=== PATIENT | male | born 1995 | race Caucasian/White ===

== ENCOUNTER 2019-04-27 16:21 | Emergency (ER) | payer BC, OTHER ==
[2019-04-27 16:56] VITALS: BP 150/74
--- NOTE | 2019-04-27 17:31 | UC ---
UC General HPI - HPI Summary HPI Summary: 23-year-old male comes in with a chief complaint worms in his stool. About a week ago he noticed some. His dodges recently had a warm infection and that they treated the dog with [id number] medications for. Patient reports seeing right spiral forearm like structures in his stool. He has abdominal discomfort but no pain no fevers. He had diarrhea was initially. Now stools are still loose. - History of Current Complaint Chief Complaint: UCGI Stated Complaint: INTESTINAL ISSUE Time Seen by Provider: 04/27/19 17:07 Pain Intensity: 0 - Allergy/Home Medications Allergies/Adverse Reactions: Allergies Allergy/AdvReac Type Severity Reaction Status Date / Time No Known Allergies Allergy Verified 04/27/19 16:50 PMH/Surg Hx/FS Hx/Imm Hx Previously Healthy: Yes - Surgical History Surgical History: None - Family History Known Family History: Positive: Unknown - Social History Alcohol Use: Weekly Substance Use Type: None Smoking Status (MU): Never Smoked Tobacco Review of Systems All Other Systems Reviewed And Are Negative: Yes Constitutional: Positive: Negative Skin: Positive: Negative Eyes: Positive: Negative ENT: Positive: Negative Respiratory: Positive: Negative Cardiovascular: Positive: Negative Gastrointestinal: Positive: Other - SEE HPI Genitourinary: Positive: Negative Motor: Positive: Negative Neurovascular: Positive: Negative Musculoskeletal: Positive: Negative Neurological: Positive: Negative Psychological: Positive: Negative Is Patient Immunocompromised?: No Physical Exam Triage Information Reviewed: Yes Appearance: Well-Appearing, No Pain Distress, Well-Nourished Vital Signs: Initial Vital Signs Temp 98.1 F 04/27/19 16:51 Pulse 77 04/27/19 16:51 Resp 16 04/27/19 16:51 BP 150/74 04/27/19 16:51 Pulse Ox 100 04/27/19 16:51 Vital Signs Reviewed: Yes Eye Exam: Normal Eyes: Positive: Conjunctiva Clear Respiratory: Positive: Lungs clear, Normal breath sounds, No respiratory distress Cardiovascular: Positive: RRR Abdomen Description: Positive: Nontender, Soft Bowel Sounds: Positive: Present Musculoskeletal Exam: Normal Musculoskeletal: Positive: Strength Intact, ROM Intact Neurological Exam: Normal Neurological: Positive: Alert, Muscle Tone Normal Psychological Exam: Normal Psychological: Positive: Age Appropriate Behavior Skin Exam: Normal Course/Dx - Course Course Of Treatment: Patient was sent home with a stool kit. Also did a prescription for albendazole 400 mg to take once. I recommended the patient get stool sample and then go and take albendazole. - Diagnoses Provider Diagnosis: Worms in stool Discharge - Sign-Out/Discharge Documenting (check all that apply): Patient Departure All imaging exams completed and their final reports reviewed: No Studies - Discharge Plan Condition: Stable Disposition: HOME Prescriptions: Albendazole 400 mg PO ONCE #2 tablet Referrals: [facility] [place] [facility] [Outside] Additional Instructions: FOLLOW UP WITH YOUR DOCTOR IF NOT COMPLETELY IMPROVED FOR THE WORMS SEEN IN YOUR STOOL. GET REEVALUATED SOONER IF WORSE OR ANY QUESTIONS OR CONCERNS. - Billing Disposition and Condition Condition: STABLE Disposition: Home
--- NOTE | 2019-04-29 11:54 | ED ---
Progress - Progress Note Progress Note: Stool test canceled by our lab; i recommend to nursing that the patient be called and directed to his primary care doctor for further testing and reevaluation as he has already been prescribed medicine after providing the specimen. Course/Dx - Diagnoses Provider Diagnoses: Worms in stool Discharge - Sign-Out/Discharge Documenting (check all that apply): Patient Departure All imaging exams completed and their final reports reviewed: No Studies - Discharge Plan Condition: Stable Disposition: HOME Prescriptions: Albendazole 400 mg PO ONCE #2 tablet Ivermectin (NF) [Stromectol (NF)] 18 mg PO ONCE #6 tab Referrals: [facility] [place] [facility] [Outside] Additional Instructions: FOLLOW UP WITH YOUR DOCTOR IF NOT COMPLETELY IMPROVED FOR THE WORMS SEEN IN YOUR STOOL. GET REEVALUATED SOONER IF WORSE OR ANY QUESTIONS OR CONCERNS. - Billing Disposition and Condition Condition: STABLE Disposition: Home
== END 2019-04-27 17:46 | disposition home or self-care (01) ==
LOC: UCCORT 16:21 → EDSEX 16:21 → UCCORT 17:46
DX: B82.0 Intestinal helminthiasis, unspecified (principal)
CPT/HCPCS: 82272; 83630; 87045; 87046; 87177; 87209; 87328; 87329; 87899; 99202; G0463